=== PATIENT | male | born 1965 | race African-American/Black ===

== ENCOUNTER 2017-10-18 16:23 | Inpatient (IN) | payer BC ==
[~2017-10-18] VITALS: Ht 172.7 cm; Wt 100.7 kg
--- NOTE | ~2017-10-18 | HP ---
PATIENT: PENELOPE IRBY MEDICAL RECORD: [id number] ACCOUNT: [id number] LOCATION:[facility] D.2305 : [birth year] ADMISSION DATE: 10/18/17 HISTORY AND PHYSICAL EXAMINATION REASON FOR ADMISSION: Chest pain and shortness of breath. HISTORY OF PRESENT ILLNESS: The patient is a 52-year-old -Serbian male with previous history of essential hypertension and hypertensive renal disease necessitating a right renal transplant years ago. The patient states that he has been a little short of breath with activity for the last 3 weeks without cough or fever. 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 He was more short of breath as well. Pain did not go into his jaw. No nausea or vomiting. He came to Emergency Room for this reason and was evaluated with initial cardiac enzymes being negative and his D-dimer mildly elevated. His sats were unremarkable. EKG showed some early repole versus ST elevation in the lateral leads. He was given morphine with total relief and his pain has been fine since that time. He denies any recent exertional chest pain, just exertional dyspnea. He says he sees Dr. Amando Bernal every 3 months for hypertension followup. He is on lisinopril only for blood pressure. PAST MEDICAL HISTORY: Hypertensive renal disease with kidney transplant, essential hypertension, obesity, erectile dysfunction, chronic renal insufficiency, and remote history of CHF, resolved post-renal transplant. PAST SURGICAL HISTORY: He had right renal transplant, appendectomy, AV fistula of the left forearm for dialysis. ALLERGIES: None known. FAMILY HISTORY: Mom is living, has hypertension. Father of renal failure. SOCIAL HISTORY: He smoked for 20 years, quit 20 years ago, used to drink beer, none in many years. 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 He has a son graduated from [employer] this year. REVIEW OF SYSTEMS: GENERAL: He has been mildly fatigued, but no recent fever. HEENT: No recent visual change, sinus congestion, or sore throat. RESPIRATORY: Marked shortness of breath on exertion for the last 3 weeks. No cough. CARDIAC: Chest pain as mentioned above yesterday while at work, associated with shortness of breath. Denies any recent exertional pain. GASTROINTESTINAL: No nausea, vomiting, change in stools or blood per rectum. GENITOURINARY: Nocturia once nightly. ENDOCRINE: Denies polyuria, polydipsia, heat or cold intolerance. NEUROLOGIC: No history of stroke, TIA, or vascular headaches. INTEGUMENT: No rash or itching. PSYCHIATRIC: Denies depressed mood. PHYSICAL EXAMINATION: VITAL SIGNS: His temperature is 98.5 Fahrenheit orally, pulse 59 and regular, respirations are 20, blood pressure 124/63 with a sat of 97% on room air. GENERAL: Alert and oriented. HISTORY AND PHYSICAL [id number] PENELOPE IRBY HEENT: Eyes are clear. Oropharynx unremarkable. NECK: Supple, without bruits or masses. CHEST: No wheeze or rales. HEART: Regular rate without MGR. PMI appropriate. ABDOMEN: Soft, nontender, mildly obese with well-healed right lower quadrant surgical scar. GENITOURINARY: Deferred. EXTREMITIES: No CC&E. NEUROLOGICAL: Oriented to person, place, and time. Cranial nerves intact. Gait normal. Memory intact. LABORATORY DATA: Troponin 0.013. CPK is elevated to 73, MB is 2.0. D-dimer 0.80. EKG as mentioned above. Chest x-ray was clear. The patient had a V/Q scan performed last night, which was low probability. His white count is 8000, H&H of 11.3 and 36.8 with normal indices. Platelet count 156,000. Potassium is 5.1, CO2 is 23.8, BUN is 28, and creatinine is 2.3. I did not know his baseline. Liver functions are normal. Troponin already mentioned. Urinalysis is negative. ASSESSMENT: 1. Exertional dyspnea with chest pain suggesting angina. EKG with ST elevation in the lateral leads suggesting lateral ischemia. 2. Hypertension. 3. Renal vascular disease with chronic renal insufficiency. 4. Remote renal transplant. 5. Obesity. PLAN: The patient is currently in the ER admission, awaiting a bed. I will talk to Dr. Segura. We will have renal consult and check his creatinine prior to considering a diagnostic cardiac workup. We will order echo. Further workup pending clinical course. TRANSINT:[id number] Voice Confirmation ID: [id number] DOCUMENT ID: [id number] AISSATOU HUTTON MD at 0644 CC: [id number] DICTATION DATE: 10/19/17706 LOZENGE MAKER HELPER: 10/19/17 0948 ADM IN [facility] [address] [facility], [facility]
[~2017-10-18 16:23] MED LIST: ASPIRIN325 MG PO; BAYER CHEWABLE81 MG PO; CELLCEPT500 MG PO; PREDNISONE10 MG PO; PROGRAF5 MG PO; TIAZAC/CARDIZE180 MG PO; ZIAC 10-6.25 MG1 TAB PO; ZOCOR20 MG PO
[2017-10-18 17:02] LABS: BASOPHILS 0.2 % (0-2); EOSINOPHILS 1.2 % (0-7); HEMATOCRIT 36.6 % (42.0-54.0); HEMOGLOBIN 11.5 g/dL (13.5-17.5); IMMATURE GRANULOCYTES 2.9 % (0-5); LYMPHOCYTES 17.6 % (15-50); MCH 27.3 pg (26.0-34.0); MCHC 31.4 g/dL (31.0-37.0); MCV 86.9 fL (80.0-100.0); MEAN PLATELET VOLUME 9.4 fL (7.4-10.4); MONOCYTES 12.1 % (2-11); RBC 4.21 10x6/uL (4.20-6.10); RDW 12.7 % (11.5-14.5); WBC 9.7 10x3/uL (4.8-10.8)
[2017-10-18 17:19] LABS: PLATELET COUNT 158 10x3/uL (130-400)
[2017-10-18 17:31] LABS: ALBUMIN 3.6 g/dL (3.4-5.0); ANION GAP 13.7 mmol/L (8-16); BILIRUBIN - TOTAL 0.3 mg/dL (0.2-1.3); CALCIUM 9.5 mg/dL (8.5-10.1); CARBON DIOXIDE 23.1 mmol/L (21.0-32.0); CREATININE - SERUM 2.7 mg/dL (0.6-1.3); POTASSIUM - SERUM 4.8 mmol/L (3.5-5.1)
[2017-10-18 18:28] LABS: APPEARANCE CLEAR (CLEAR); BILIRUBIN NEGATIVE (NEGATIVE); COLOR YELLOW (YELLOW); GLUCOSE NEGATIVE (NEGATIVE); KETONE NEGATIVE (NEGATIVE); NITRITE NEGATIVE (NEGATIVE); PROTEIN NEGATIVE (NEGATIVE); SPECIFIC GRAVITY 1.015 (1.005-1.020); UROBILINOGEN NORMAL (NORMAL)
[2017-10-18 19:22] LABS: INR 0.95 (0.85-1.17); PROTIME 12.3 SECONDS (11.6-15.0)
[2017-10-18 19:24] LABS: APTT 26.9 SECONDS (22.8-39.4)
[2017-10-18 19:25] LABS: D-DIMER-QUANTITATIVE 0.8 ug/mLFEU (0.20-0.54)
[2017-10-18 19:47] LABS: CREATINE KINASE 273 UL (21-232)
[2017-10-18 19:50] LABS: TROPONIN-I < 0.017 ng/mL (0.000-0.060)
[2017-10-18 23:26] LABS: CKMB 1.6 U/L (0.0-3.6); CREATINE KINASE 245 UL (21-232)
[2017-10-18 23:29] LABS: TROPONIN-I < 0.017 ng/mL (0.000-0.060)
[2017-10-19 05:38] LABS: BASOPHILS 0.4 % (0-2); HEMATOCRIT 36.6 % (42.0-54.0); HEMOGLOBIN 11.3 g/dL (13.5-17.5); LYMPHOCYTES 22.4 % (15-50); MCHC 30.9 g/dL (31.0-37.0); MCV 87.4 fL (80.0-100.0); MEAN PLATELET VOLUME 10.2 fL (7.4-10.4); MONOCYTES 12.9 % (2-11); NEUTROPHILS 60.3 % (40-80); PLATELET COUNT 156 10x3/uL (130-400); RBC 4.19 10x6/uL (4.20-6.10); RDW 12.7 % (11.5-14.5); WBC 8.4 10x3/uL (4.8-10.8)
[2017-10-19 06:20] LABS: ALBUMIN 3.4 g/dL (3.4-5.0); ALKALINE PHOSPHATASE 57 U/L (46-116); CALC OSMOLALITY 286 mosm/kg (275-300); CALCIUM 9.3 mg/dL (8.5-10.1); CARBON DIOXIDE 23.8 mmol/L (21.0-32.0); CHLORIDE - SERUM 109 mmol/L (98-107); CKMB 1.4 U/L (0.0-3.6); CREATINE KINASE 203 UL (21-232); CREATININE - SERUM 2.3 mg/dL (0.6-1.3); GLUCOSE 94 mg/dL (74-106); POTASSIUM - SERUM 5.1 mmol/L (3.5-5.1); PROTEIN - SERUM 6.2 g/dL (6.4-8.2); SODIUM 141 mmol/L (136-145); TROPONIN-I < 0.017 ng/mL (0.000-0.060); UREA NITROGEN 28 mg/dL (7-18); eGFR NON AFRICAN AMERICAN 32 mL/min (90-120)
[2017-10-19 06:21] LABS: ALT (SGPT) 18 U/L (10-68)
[2017-10-19 08:19] LABS: AMYLASE - SERUM 120 U/L (25-115); LIPASE 153 U/L (73-393)
[2017-10-19 10:49] VITALS: BP 137/92; BMI 32.6
[2017-10-19 11:52] LABS: CKMB 1.1 U/L (0.0-3.6); CREATINE KINASE 204 UL (21-232)
[2017-10-19 11:55] LABS: TROPONIN-I < 0.017 ng/mL (0.000-0.060)
[2017-10-19 13:38] VITALS: Ht 172.7 cm; Wt 100.7 kg
[2017-10-19 19:00] VITALS: BP 119/63; BP 127/67
[2017-10-19 20:00] VITALS: BP 125/59
[2017-10-19 21:00] VITALS: BP 127/67
[2017-10-19 22:00] VITALS: BP 119/68
[2017-10-19 23:00] VITALS: BP 128/73
[2017-10-20] VITALS (43 sets, daily range): BP systolic 105–147; BP diastolic 67–95
[2017-10-20 04:26] LABS: ANION GAP 10.9 mmol/L (8-16); CALCIUM 8.5 mg/dL (8.5-10.1); CARBON DIOXIDE 23.1 mmol/L (21.0-32.0)
[2017-10-20 04:54] LABS: BASOPHILS 0.3 % (0-2); HEMATOCRIT 34.6 % (42.0-54.0); HEMOGLOBIN 10.8 g/dL (13.5-17.5); IMMATURE GRANULOCYTES 1.8 % (0-5); LYMPHOCYTES 14.8 % (15-50); MCH 26.9 pg (26.0-34.0); MCHC 31.2 g/dL (31.0-37.0); MCV 86.3 fL (80.0-100.0); MEAN PLATELET VOLUME 11.5 fL (7.4-10.4); MONOCYTES 12.2 % (2-11); NEUTROPHILS 69.9 % (40-80); RBC 4.01 10x6/uL (4.20-6.10); RDW 12.6 % (11.5-14.5); WBC 8.7 10x3/uL (4.8-10.8)
[2017-10-20 04:57] LABS: PLATELET COUNT 124 10x3/uL (130-400)
[2017-10-21] VITALS (8 sets, daily range): BP systolic 127–148; BP diastolic 67–85
[2017-10-21 04:31] LABS: BASOPHILS 0.2 % (0-2); EOSINOPHILS 1.3 % (0-7); HEMATOCRIT 32.6 % (42.0-54.0); HEMOGLOBIN 10.2 g/dL (13.5-17.5); IMMATURE GRANULOCYTES 1.1 % (0-5); LYMPHOCYTES 21.8 % (15-50); MCH 26.8 pg (26.0-34.0); MCHC 31.3 g/dL (31.0-37.0); MCV 85.8 fL (80.0-100.0); MEAN PLATELET VOLUME 9.8 fL (7.4-10.4); MONOCYTES 10.9 % (2-11); NEUTROPHILS 64.7 % (40-80); RDW 12.7 % (11.5-14.5); WBC 8.2 10x3/uL (4.8-10.8)
[2017-10-21 04:33] LABS: PLATELET COUNT 151 10x3/uL (130-400)
[2017-10-21 04:46] LABS: ANION GAP 18.5 mmol/L (8-16); CALCIUM 8.6 mg/dL (8.5-10.1); CARBON DIOXIDE 18.4 mmol/L (21.0-32.0); CREATININE - SERUM 2.5 mg/dL (0.6-1.3); POTASSIUM - SERUM 4.9 mmol/L (3.5-5.1)
[2017-10-22 04:00] VITALS: BP 148/77
[2017-10-22 06:56] LABS: BASOPHILS 0.2 % (0-2); EOSINOPHILS 1.1 % (0-7); HEMATOCRIT 32.9 % (42.0-54.0); HEMOGLOBIN 10.4 g/dL (13.5-17.5); IMMATURE GRANULOCYTES 0.5 % (0-5); LYMPHOCYTES 18.9 % (15-50); MCHC 31.6 g/dL (31.0-37.0); MCV 85.5 fL (80.0-100.0); MEAN PLATELET VOLUME 10.1 fL (7.4-10.4); NEUTROPHILS 70.3 % (40-80); PLATELET COUNT 158 10x3/uL (130-400); RBC 3.85 10x6/uL (4.20-6.10); RDW 12.5 % (11.5-14.5); WBC 9.2 10x3/uL (4.8-10.8)
[2017-10-22 07:14] LABS: ANION GAP 17.3 mmol/L (8-16); CALCIUM 8.8 mg/dL (8.5-10.1); CREATININE - SERUM 2.1 mg/dL (0.6-1.3); POTASSIUM - SERUM 5.3 mmol/L (3.5-5.1)
[2017-10-22 07:52] VITALS: BP 139/81
[2017-10-22 11:28] VITALS: BP 129/79
[2017-10-22 15:24] VITALS: BP 130/79
== END 2017-10-22 18:03 | disposition home or self-care (01) | DRG 311 ==
LOC: D.ER 16:23 → D.ICU 22:46 → D.M2 22:46 → D.EDHOLD 22:46 → D.ICU 10-19 16:38 → D.M2 10-22 00:22
PROVIDERS: Emergency Medicine; Family Medicine; Internal Medicine; Physician Assistant Medical
PROC: 4A02XM4 Measurement of Cardiac Total Activity, External Approach (ICD-10-PCS; principal; 2017-10-19)
PROC: 3E073KZ Introduction of Other Diagnostic Substance into Coronary Artery, Percutaneous Approach (ICD-10-PCS; 2017-10-19)
DX: I20.0 Unstable angina (principal); Z94.0 Kidney transplant status; T86.19 Other complication of kidney transplant; I12.9 Hypertensive chronic kidney disease with stage 1 through stage 4 chronic kidney disease, or unspecified chronic kidney disease; N18.3 Chronic kidney disease, stage 3 (moderate); R00.1 Bradycardia, unspecified; I95.9 Hypotension, unspecified; E66.9 Obesity, unspecified

== ENCOUNTER 2018-04-20 09:20 | Inpatient (IN) | payer BC ==
[~2018-04-20] VITALS: Ht 172.7 cm; Wt 92.9 kg
--- NOTE | ~2018-04-20 | MORECARE ---
CASE MANAGEMENT DISCHARGE SUMMARY PATIENT: PENELOPE IRBY UNIT: [id number] ADM DATE: 04/20/18 AGE: 52 : 65 SEX: M ROOM/BED: D.2112 AUTHOR: DEYA DE LA FUENTE PHYSICIAN: REFERRING PHYSICIAN: BETH NOEL MD DATE OF SERVICE: 04/25/18 Discharge Plan Patient Name: PENELOPE IRBY Facility: [facility]:[place] : 1965 Planned Disposition: Home Anticipated Discharge Date: 04/23/18 Discharge Date: 04/23/2018 Expected LOS: 3 Initial Reviewer: [email or web address] Initial Review Date: 04/25/2018 Generated: 04/25/18 9:45 am Patient Name: PENELOPE IRBY Page [phone] at 0845 All edits/amendments must be made on the electronic document DICTATION DATE: 04/25/1845 TOOL PLANER SET UP OPERATOR: KLEBER 04/25/18 RPT#: [id number] DC DATE:04/23/18 STATUS: DIS IN [facility] [address] [place] [address] END OF REPORT
[2018-04-20 10:50] LABS: BASOPHILS 0.1 % (0-2); EOSINOPHILS 0.7 % (0-7); HEMATOCRIT 35.9 % (42.0-54.0); HEMOGLOBIN 11.3 g/dL (13.5-17.5); IMMATURE GRANULOCYTES 1.3 % (0-5); LYMPHOCYTES 12.1 % (15-50); MCH 27.4 pg (26.0-34.0); MCHC 31.5 g/dL (31.0-37.0); MCV 87.1 fL (80.0-100.0); MEAN PLATELET VOLUME 9.9 fL (7.4-10.4); MONOCYTES 12.2 % (2-11); NEUTROPHILS 73.6 % (40-80); PLATELET COUNT 148 10x3/uL (130-400); RBC 4.12 10x6/uL (4.20-6.10); RDW 12.9 % (11.5-14.5)
[2018-04-20 10:58] LABS: APPEARANCE CLEAR (CLEAR); COLOR YELLOW (YELLOW)
[2018-04-20 11:00] LABS: AMYLASE - SERUM 137 U/L (25-115); LIPASE 179 U/L (73-393)
[2018-04-20 11:02] LABS: BILIRUBIN NEGATIVE (NEGATIVE); GLUCOSE NEGATIVE (NEGATIVE); KETONE NEGATIVE (NEGATIVE); NITRITE NEGATIVE (NEGATIVE); PROTEIN NEGATIVE (NEGATIVE); RED CELLS - URINE RARE /hpf (0-5); UROBILINOGEN NORMAL (NORMAL)
[2018-04-20 11:03] LABS: BACTERIA MODERATE /hpf (NONE SEEN); MUCUS <1+ /lpf (NONE SEEN)
[2018-04-20 11:34] VITALS: BP 164/83
[2018-04-20 12:39] LABS: ALBUMIN 3.4 g/dL (3.4-5.0); BILIRUBIN - TOTAL 0.58 mg/dL (0.2-1.3); CALCIUM 9.4 mg/dL (8.5-10.1); CARBON DIOXIDE 23.8 mmol/L (21.0-32.0); CREATININE - SERUM 2.4 mg/dL (0.6-1.3); POTASSIUM - SERUM 4.8 mmol/L (3.5-5.1); PROTEIN - SERUM 6.8 g/dL (6.4-8.2)
[2018-04-20 13:26] VITALS: BP 155/94
[2018-04-20 14:22] VITALS: BP 146/89
[2018-04-20 15:23] VITALS: BP 146/89; BMI 31.1
[2018-04-20 16:31] VITALS: BP 140/85
[2018-04-20 20:00] VITALS: BP 135/79
[2018-04-21] VITALS: BP 119/81
[2018-04-21 04:00] VITALS: BP 120/76
[2018-04-21 06:16] LABS: BASOPHILS 0.1 % (0-2); EOSINOPHILS 0.5 % (0-7); HEMATOCRIT 34.8 % (42.0-54.0); HEMOGLOBIN 10.9 g/dL (13.5-17.5); IMMATURE GRANULOCYTES 0.9 % (0-5); MCH 27.2 pg (26.0-34.0); MCHC 31.3 g/dL (31.0-37.0); MCV 86.8 fL (80.0-100.0); MEAN PLATELET VOLUME 10.2 fL (7.4-10.4); MONOCYTES 12.6 % (2-11); NEUTROPHILS 72.9 % (40-80); PLATELET COUNT 149 10x3/uL (130-400); RBC 4.01 10x6/uL (4.20-6.10); RDW 12.9 % (11.5-14.5)
[2018-04-21 06:47] LABS: ANION GAP 15.4 mmol/L (8-16); CALCIUM 8.4 mg/dL (8.5-10.1); CARBON DIOXIDE 20.2 mmol/L (21.0-32.0); CREATININE - SERUM 2.3 mg/dL (0.6-1.3); PHOSPHOROUS 2.2 mg/dL (2.5-4.9); POTASSIUM - SERUM 4.6 mmol/L (3.5-5.1)
[2018-04-21 08:06] VITALS: BP 144/78
[2018-04-21 10:35] VITALS: Ht 172.7 cm; Wt 92.9 kg
[2018-04-21 11:14] VITALS: BP 126/72
[2018-04-21 15:02] VITALS: BP 115/56
[2018-04-21 20:00] VITALS: BP 128/77
[2018-04-22] VITALS: BP 130/70
[2018-04-22 04:00] VITALS: BP 127/65
[2018-04-22 06:50] LABS: HEMATOCRIT 32.3 % (42.0-54.0); HEMOGLOBIN 10.4 g/dL (13.5-17.5); MCH 27.1 pg (26.0-34.0); MCHC 32.2 g/dL (31.0-37.0); MEAN PLATELET VOLUME 9.6 fL (7.4-10.4); NEUTROPHILS 78.7 % (40-80); PLATELET COUNT 122 10x3/uL (130-400); RBC 3.84 10x6/uL (4.20-6.10); RDW 12.2 % (11.5-14.5); WBC 12.4 10x3/uL (4.8-10.8)
[2018-04-22 06:52] LABS: MCV 84.1 fL (80.0-100.0)
[2018-04-22 07:00] LABS: ANION GAP 15.6 mmol/L (8-16); CALCIUM 8.6 mg/dL (8.5-10.1); CARBON DIOXIDE 20.9 mmol/L (21.0-32.0); CREATININE - SERUM 2.4 mg/dL (0.6-1.3); PHOSPHOROUS 2.7 mg/dL (2.5-4.9); POTASSIUM - SERUM 4.5 mmol/L (3.5-5.1)
[2018-04-22 08:20] VITALS: BP 131/69
[2018-04-22 12:07] VITALS: BP 137/93
[2018-04-22 14:14] VITALS: BP 102/54
[2018-04-22 20:00] VITALS: BP 112/59
[2018-04-23 00:10] VITALS: BP 118/59
[2018-04-23 04:00] VITALS: BP 121/51
[2018-04-23 05:47] LABS: BASOPHILS 0.1 % (0-2); EOSINOPHILS 0.9 % (0-7); HEMATOCRIT 31.8 % (42.0-54.0); HEMOGLOBIN 10.1 g/dL (13.5-17.5); IMMATURE GRANULOCYTES 1.2 % (0-5); MCH 26.9 pg (26.0-34.0); MCHC 31.8 g/dL (31.0-37.0); MCV 84.8 fL (80.0-100.0); MEAN PLATELET VOLUME 10.5 fL (7.4-10.4); MONOCYTES 8.9 % (2-11); NEUTROPHILS 75.9 % (40-80); PLATELET COUNT 137 10x3/uL (130-400); RBC 3.75 10x6/uL (4.20-6.10); RDW 12.5 % (11.5-14.5); WBC 12.9 10x3/uL (4.8-10.8)
[2018-04-23 06:05] LABS: ANION GAP 15.7 mmol/L (8-16); CALCIUM 8.9 mg/dL (8.5-10.1); CARBON DIOXIDE 20.9 mmol/L (21.0-32.0); CREATININE - SERUM 2.4 mg/dL (0.6-1.3); PHOSPHOROUS 3.1 mg/dL (2.5-4.9); POTASSIUM - SERUM 4.6 mmol/L (3.5-5.1)
[2018-04-23 07:40] VITALS: BP 135/73
[2018-04-23] MEDS ORDERED: FLAGYL500 MG PO (09:58)
[2018-04-23] MEDS ORDERED: LEVAQUIN250 MG PO (09:58)
[2018-04-23 10:40] VITALS: BP 134/76
== END 2018-04-23 15:47 | disposition home or self-care (01) | DRG 392 ==
LOC: D.ER 09:20 → D.M2 12:51 → D.EDHOLD 12:51 → D.M2 14:02
PROVIDERS: Emergency Medicine; Internal Medicine Nephrology
DX: K57.92 Diverticulitis of intestine, part unspecified, without perforation or abscess without bleeding (principal); I13.0 Hypertensive heart and chronic kidney disease with heart failure and stage 1 through stage 4 chronic kidney disease, or unspecified chronic kidney disease; Z94.0 Kidney transplant status; N18.3 Chronic kidney disease, stage 3 (moderate); I50.9 Heart failure, unspecified; D64.9 Anemia, unspecified; E78.5 Hyperlipidemia, unspecified; N26.9 Renal sclerosis, unspecified

== ENCOUNTER 2020-03-11 10:29 | Inpatient (IN) | payer BC ==
[~2020-03-11] VITALS: Ht 172.7 cm; Wt 110.6 kg
[2020-03-11] VITALS (10 sets, daily range): BP systolic 106–139; BP diastolic 65–96; BMI 30.2
[~2020-03-11 10:29] MED LIST changes: +FLAGYL500 MG PO; +LEVAQUIN250 MG PO
[2020-03-11 11:28] LABS: BASOPHILS 0.1 % (0-2); EOSINOPHILS 0.2 % (0-7); HEMOGLOBIN 12.3 g/dL (13.5-17.5); IMMATURE GRANULOCYTES 0.4 % (0-5); LYMPHOCYTES 6.3 % (15-50); MCH 26.9 pg (26.0-34.0); MCHC 31.5 g/dL (31.0-37.0); MCV 85.3 fL (80.0-100.0); MEAN PLATELET VOLUME 12.1 fL (7.4-10.4); MONOCYTES 5.3 % (2-11); NEUTROPHILS 87.7 % (40-80); RBC 4.57 10x6/uL (4.20-6.10); RDW 12.6 % (11.5-14.5); WBC 9.8 10x3/uL (4.8-10.8)
[2020-03-11 11:36] LABS: PLATELET COUNT 172 10x3/uL (130-400)
[2020-03-11 11:47] LABS: APTT 28.6 SECONDS (22.8-39.4); INR 0.94 (0.85-1.17); PROTIME 12.6 SECONDS (11.6-15.0)
[2020-03-11 12:43] LABS: ALBUMIN 3.3 g/dL (3.4-5.0); ALKALINE PHOSPHATASE 54 U/L (30-120); ALT (SGPT) 16 U/L (10-68); CALCIUM 8.8 mg/dL (8.5-10.1); CARBON DIOXIDE 16.5 mmol/L (21.0-32.0); CHLORIDE - SERUM 97 mmol/L (98-107); CKMB 1.1 U/L (0.0-3.6); CREATINE KINASE 345 UL (21-232); PRO BNP 464 pg/mL (0-125); PROTEIN - SERUM 6.8 g/dL (6.4-8.2); SODIUM 129 mmol/L (136-145); UREA NITROGEN 77 mg/dL (7-18); eGFR NON AFRICAN AMERICAN 10 mL/min (90-120)
[2020-03-11 12:45] LABS: CALC OSMOLALITY 289 mosm/kg (275-300); GLUCOSE 243 mg/dL (74-106)
[2020-03-11 12:46] LABS: POTASSIUM - SERUM 6.7 mmol/L (3.5-5.1); TROPONIN-I 0.063 ng/mL (0.000-0.060)
--- NOTE | 2020-03-11 12:46 | NUR ---
CRITIAL LAB CALLED BY JANET: K+ 6.7, TROP 0.063. NOTIFIED AMELIA CHUNG AT 1249. NO NEW ORDERS REC'D AT THIS TIME.
--- NOTE | 2020-03-11 15:15 | NUR ---
FSBS 332.
[2020-03-11 16:09] LABS: ALBUMIN 3.1 g/dL (3.4-5.0); ANION GAP 22.8 mmol/L (8-16); BILIRUBIN - TOTAL 0.64 mg/dL (0.2-1.3); CALCIUM 8.7 mg/dL (8.5-10.1); CREATININE - SERUM 6.5 mg/dL (0.6-1.3); PROTEIN - SERUM 7.4 g/dL (6.4-8.2)
[2020-03-11 16:10] LABS: POTASSIUM - SERUM 6.8 mmol/L (3.5-5.1)
[2020-03-11 20:51] LABS: ALBUMIN 2.9 g/dL (3.4-5.0); ANION GAP 24.4 mmol/L (8-16); BILIRUBIN - TOTAL 0.52 mg/dL (0.2-1.3); CALCIUM 8.6 mg/dL (8.5-10.1); CARBON DIOXIDE 14.4 mmol/L (21.0-32.0); CREATININE - SERUM 6.4 mg/dL (0.6-1.3); PROTEIN - SERUM 7.1 g/dL (6.4-8.2)
[2020-03-11 21:15] LABS: POTASSIUM - SERUM 6.8 mmol/L (3.5-5.1)
[2020-03-12] VITALS (24 sets, daily range): BP systolic 61–166; BP diastolic 36–97; Ht 172.7 cm; Wt 110.6 kg
[2020-03-12 01:44] LABS: CALCIUM 8.2 mg/dL (8.5-10.1); CREATININE - SERUM 5.8 mg/dL (0.6-1.3)
[2020-03-12 01:52] LABS: ANION GAP 17.6 mmol/L (8-16); CARBON DIOXIDE 20.7 mmol/L (21.0-32.0); POTASSIUM - SERUM 5.3 mmol/L (3.5-5.1)
[2020-03-12 04:52] LABS: BASOPHILS 0 % (0-2); EOSINOPHILS 0 % (0-7); HEMATOCRIT 32.8 % (42.0-54.0); HEMOGLOBIN 10.3 g/dL (13.5-17.5); IMMATURE GRANULOCYTES 0.7 % (0-5); LYMPHOCYTES 10.6 % (15-50); MCH 26.1 pg (26.0-34.0); MCHC 31.4 g/dL (31.0-37.0); MEAN PLATELET VOLUME 10.6 fL (7.4-10.4); MONOCYTES 8.1 % (2-11); NEUTROPHILS 80.6 % (40-80); PLATELET COUNT 163 10x3/uL (130-400); RBC 3.95 10x6/uL (4.20-6.10); RDW 12.4 % (11.5-14.5)
[2020-03-12 04:56] LABS: WBC 5.8 10x3/uL (4.8-10.8)
[2020-03-12 05:07] LABS: ALBUMIN 2.8 g/dL (3.4-5.0); ANION GAP 17.5 mmol/L (8-16); BILIRUBIN - TOTAL 0.41 mg/dL (0.2-1.3); CALCIUM 8.2 mg/dL (8.5-10.1); CARBON DIOXIDE 19.6 mmol/L (21.0-32.0); CREATININE - SERUM 5.8 mg/dL (0.6-1.3); POTASSIUM - SERUM 5.1 mmol/L (3.5-5.1); PROTEIN - SERUM 6.9 g/dL (6.4-8.2)
--- NOTE | 2020-03-12 09:43 | NUR ---
0700 REPOR RECIEVED AND CARE ASSUMED OF PATIENT.. SEE FLOW SHEET FOR SHIFTT ASSESMENT FINDINGS.. CARE GIVEN BY TEAM NURSING ESHA WALLACE RN AND MYSELF..
--- NOTE | 2020-03-12 10:24 | NUR ---
1020 ECHO IN PROGRESS
[2020-03-12 13:35] LABS: ANION GAP 19.6 mmol/L (8-16); CALCIUM 8.5 mg/dL (8.5-10.1); CARBON DIOXIDE 18.2 mmol/L (21.0-32.0); CREATININE - SERUM 5.6 mg/dL (0.6-1.3); POTASSIUM - SERUM 4.8 mmol/L (3.5-5.1)
--- NOTE | 2020-03-12 20:29 | NUR ---
DR HUTCHINSON PAGED. UPDATED ON STATUS, NEW ORDERS RECEIVED.
--- NOTE | 2020-03-12 21:00 | NUR ---
DR SMITHA LYNCH, UPDATED ON PT STATUS, NEW ORDERS RECEIVED.
[2020-03-12 21:52] LABS: ANION GAP 14.5 mmol/L (8-16); CALCIUM 8.6 mg/dL (8.5-10.1); CARBON DIOXIDE 22.4 mmol/L (21.0-32.0); CREATININE - SERUM 5.2 mg/dL (0.6-1.3); POTASSIUM - SERUM 4.9 mmol/L (3.5-5.1)
[2020-03-13] VITALS (24 sets, daily range): BP systolic 118–140; BP diastolic 52–98
[2020-03-13 05:06] LABS: C-REACTIVE PROTEIN 7.9 mg/dL (0.0-0.9); MAGNESIUM - SERUM 1.8 mg/dL (1.8-2.4); PHOSPHOROUS 3.4 mg/dL (2.5-4.9)
[2020-03-13 12:10] LABS: ALBUMIN 2.9 g/dL (3.4-5.0); ANION GAP 18.3 mmol/L (8-16); BILIRUBIN - TOTAL 0.4 mg/dL (0.2-1.3); CALCIUM 8.5 mg/dL (8.5-10.1); CARBON DIOXIDE 20.7 mmol/L (21.0-32.0); CREATININE - SERUM 4.8 mg/dL (0.6-1.3); PROTEIN - SERUM 6.1 g/dL (6.4-8.2)
--- NOTE | 2020-03-13 13:25 | NUR ---
Nutrition follow-up: Diet: Renal ADA PO Intake 100% of dinner last night Pt with BIPAP in place at breakfast this morning Labs reviewed; K elevated Wt: 199# RDN following.
[2020-03-13 18:12] LABS: ANION GAP 15.9 mmol/L (8-16); CARBON DIOXIDE 21.5 mmol/L (21.0-32.0); CREATININE - SERUM 3.8 mg/dL (0.6-1.3); POTASSIUM - SERUM 5.4 mmol/L (3.5-5.1)
--- NOTE | 2020-03-13 19:00 | NUR ---
REPORT RECEIVED. PT SITTING IN BED, BIPAP IN PLACE. PT TACHYPNEIC, WILL CONTINUE TO MONITOR. ASSESSMENT COMPLETED, SEE FLOWSHEET. RT IJ CVL INFUSING, SEE IV FLOWSHEET.
[2020-03-14] VITALS (13 sets, daily range): BP systolic 129–158; BP diastolic 87–100
[2020-03-14 06:37] LABS: ANION GAP 16.7 mmol/L (8-16); CALCIUM 9.3 mg/dL (8.5-10.1); CARBON DIOXIDE 22.6 mmol/L (21.0-32.0); CREATININE - SERUM 3.3 mg/dL (0.6-1.3); MAGNESIUM - SERUM 1.9 mg/dL (1.8-2.4); PHOSPHOROUS 4.1 mg/dL (2.5-4.9); POTASSIUM - SERUM 5.3 mmol/L (3.5-5.1)
[2020-03-14 07:02] LABS: BASOPHILS 0 % (0-2); EOSINOPHILS 0 % (0-7); HEMATOCRIT 31.5 % (42.0-54.0); HEMOGLOBIN 9.9 g/dL (13.5-17.5); IMMATURE GRANULOCYTES 0.9 % (0-5); LYMPHOCYTES 4.1 % (15-50); MCH 26.4 pg (26.0-34.0); MCHC 31.4 g/dL (31.0-37.0); MEAN PLATELET VOLUME 10.9 fL (7.4-10.4); MONOCYTES 11.2 % (2-11); NEUTROPHILS 83.8 % (40-80); PLATELET COUNT 186 10x3/uL (130-400); RBC 3.75 10x6/uL (4.20-6.10); RDW 12.6 % (11.5-14.5); WBC 8.5 10x3/uL (4.8-10.8)
--- NOTE | 2020-03-14 11:23 | NUR ---
PLACED PT ON NBR
[2020-03-15] VITALS (18 sets, daily range): BP systolic 109–167; BP diastolic 85–111
[2020-03-15 06:43] LABS: BASOPHILS 0.1 % (0-2); EOSINOPHILS 0 % (0-7); HEMATOCRIT 32.6 % (42.0-54.0); LYMPHOCYTES 8.1 % (15-50); MCH 26.2 pg (26.0-34.0); MCHC 30.7 g/dL (31.0-37.0); MCV 85.3 fL (80.0-100.0); MEAN PLATELET VOLUME 10.8 fL (7.4-10.4); MONOCYTES 5.1 % (2-11); NEUTROPHILS 84.7 % (40-80); PLATELET COUNT 208 10x3/uL (130-400); RBC 3.82 10x6/uL (4.20-6.10); RDW 12.8 % (11.5-14.5); WBC 9.9 10x3/uL (4.8-10.8)
[2020-03-15 06:55] LABS: ANION GAP 13.3 mmol/L (8-16); CALCIUM 9.3 mg/dL (8.5-10.1); CARBON DIOXIDE 25.5 mmol/L (21.0-32.0); CREATININE - SERUM 2.7 mg/dL (0.6-1.3); MAGNESIUM - SERUM 1.6 mg/dL (1.8-2.4); PHOSPHOROUS 3.8 mg/dL (2.5-4.9); POTASSIUM - SERUM 4.8 mmol/L (3.5-5.1)
--- NOTE | 2020-03-15 08:25 | NUR ---
DECREASED O2 70%
--- NOTE | 2020-03-15 13:18 | NUR ---
Nutrition follow-up: Pt receiving a renal ADA diet; po intake poor due to BIPAP on most of the time Labs reviewed Wt: 239# Will need nutrition support started within 24 hours if po intake remains poor. RDN following.
[2020-03-16] VITALS (24 sets, daily range): BP systolic 90–197; BP diastolic 62–117
--- NOTE | 2020-03-16 00:53 | NUR ---
CHANGED CVL DRESSING AT 2200, OLD DRESSING COMING OFF. CHG WITH COMPLETE LINEN CHANGE AT 0000, SOILED SOILED/BM
--- NOTE | 2020-03-16 01:32 | NUR ---
PATIENT BROKE BIPAP. WALKING OUT OF ROOM, CONFUSED. ASSISTED BACK TO ROOM AND REPLACED BIPAP.
[2020-03-16 04:52] LABS: BASOPHILS 0.2 % (0-2); EOSINOPHILS 0 % (0-7); HEMATOCRIT 33.7 % (42.0-54.0); HEMOGLOBIN 10.6 g/dL (13.5-17.5); IMMATURE GRANULOCYTES 4.1 % (0-5); LYMPHOCYTES 8.2 % (15-50); MCH 26.6 pg (26.0-34.0); MCHC 31.5 g/dL (31.0-37.0); MCV 84.5 fL (80.0-100.0); MEAN PLATELET VOLUME 10.1 fL (7.4-10.4); MONOCYTES 5.3 % (2-11); NEUTROPHILS 82.2 % (40-80); PLATELET COUNT 233 10x3/uL (130-400); RBC 3.99 10x6/uL (4.20-6.10); RDW 12.7 % (11.5-14.5)
[2020-03-16 04:53] LABS: WBC 15.9 10x3/uL (4.8-10.8)
[2020-03-16 05:04] LABS: ANION GAP 14.4 mmol/L (8-16); CALCIUM 9.7 mg/dL (8.5-10.1); CARBON DIOXIDE 24.1 mmol/L (21.0-32.0); CREATININE - SERUM 2.5 mg/dL (0.6-1.3); PHOSPHOROUS 3.3 mg/dL (2.5-4.9); POTASSIUM - SERUM 4.5 mmol/L (3.5-5.1)
[2020-03-16 05:06] LABS: MAGNESIUM - SERUM 2.3 mg/dL (1.8-2.4)
--- NOTE | 2020-03-16 06:13 | NUR ---
PATIENT WALKING AROUND ROOM. STUMBLING. ASSISTED TO BED. F/C PLACE D/T NO UOP DURING TRAIN MASTER WITH APPROX 150 ML OUT. EDUCATED ON FALL RISK AGAIN.
--- NOTE | 2020-03-16 10:52 | NUR ---
PT SHAKING AND COMMING OUT OF BED AND APPEARS ANXIOUS. REPORTED TO DR BONE. ATIVAN IV GIVEN.
--- NOTE | 2020-03-16 18:54 | NUR ---
RESP RATE 50BPM ON BIPAP. CALLED AND REPORTED TO DR BONE. PT INTUBATED BY DR NELSON 8.5ETT. 23 LIP LINE. PTS CALLED. LEFT MESSAGE.
--- NOTE | 2020-03-16 19:00 | NUR ---
PAGED DR. BONE
--- NOTE | 2020-03-16 19:47 | NUR ---
1930-PATIENT SBP IN 70. OK WITH DR. BONE TO GIVE 500 ML BOLUS AND MAY GIVE ANOTHER IF BP NOT IMPROVING.
--- NOTE | 2020-03-16 20:35 | NUR ---
GIVING SECOND 500 ML BOLUS OF IVF PER DR. BONE. BP 74/45 (51)
--- NOTE | 2020-03-16 20:41 | NUR ---
CHAO IRBY CALLED, GAVE PASSCODE, UPDATE GIVEN
--- NOTE | 2020-03-16 21:15 | NUR ---
A-LINE ISN'T WORKING, USING CUFF PRESSURE.
[2020-03-17] VITALS (24 sets, daily range): BP systolic 79–132; BP diastolic 38–79
--- NOTE | 2020-03-17 03:27 | NUR ---
CALLED, PASSCODE GIVEN. UPDATE GIVEN TO
[2020-03-17 04:34] LABS: BASOPHILS 0.2 % (0-2); EOSINOPHILS 0 % (0-7); HEMATOCRIT 27.1 % (42.0-54.0); IMMATURE GRANULOCYTES 5.7 % (0-5); LYMPHOCYTES 6.9 % (15-50); MEAN PLATELET VOLUME 9.4 fL (7.4-10.4); MONOCYTES 6.3 % (2-11); NEUTROPHILS 80.9 % (40-80); PLATELET COUNT 199 10x3/uL (130-400); RDW 12.9 % (11.5-14.5)
[2020-03-17 04:35] LABS: HEMOGLOBIN 8.4 g/dL (13.5-17.5); MCV 87.1 fL (80.0-100.0); RBC 3.11 10x6/uL (4.20-6.10); WBC 10.5 10x3/uL (4.8-10.8)
[2020-03-17 04:58] LABS: ALBUMIN 2.3 g/dL (3.4-5.0); ANION GAP 14.1 mmol/L (8-16); BILIRUBIN - TOTAL 0.4 mg/dL (0.2-1.3); CALCIUM 8.8 mg/dL (8.5-10.1); CARBON DIOXIDE 24.9 mmol/L (21.0-32.0); MAGNESIUM - SERUM 2.1 mg/dL (1.8-2.4); PROTEIN - SERUM 5.6 g/dL (6.4-8.2); VANCOMYCIN - RANDOM 11.4 ug/mL (10.0-20.0)
[2020-03-17 05:00] LABS: CREATININE - SERUM 3.2 mg/dL (0.6-1.3); PHOSPHOROUS 4.3 mg/dL (2.5-4.9)
[2020-03-18] VITALS (25 sets, daily range): BP systolic 87–132; BP diastolic 0–78
--- NOTE | 2020-03-18 | NUR ---
Spoke with Dr. Espinal regarding Pt's O2 sats continueing to drop despite checking cuff pressure, checking tube placement, increasing fiO2% to 100%, and suctioning. Dr Espinal gave orders to do the Recruitment manuver- PEEP of 30 for 30 secs, wait for 15 mins and then to repeat. No vent changes to be made at this time. Gave orders to RT, and they were completed.
[2020-03-18 06:53] LABS: ANION GAP 16.4 mmol/L (8-16); CALCIUM 7.5 mg/dL (8.5-10.1); CARBON DIOXIDE 19.4 mmol/L (21.0-32.0); CREATININE - SERUM 2.7 mg/dL (0.6-1.3); MAGNESIUM - SERUM 2.1 mg/dL (1.8-2.4); POTASSIUM - SERUM 4.8 mmol/L (3.5-5.1); VANCOMYCIN - RANDOM 13.8 ug/mL (10.0-20.0)
[2020-03-18 06:54] LABS: PHOSPHOROUS 5.5 mg/dL (2.5-4.9)
[2020-03-18 07:00] LABS: BASOPHILS 0.5 % (0-2); EOSINOPHILS 0.2 % (0-7); HEMATOCRIT 24.6 % (42.0-54.0); IMMATURE GRANULOCYTES 11.3 % (0-5); LYMPHOCYTES 4.4 % (15-50); MCHC 30.5 g/dL (31.0-37.0); MCV 88.5 fL (80.0-100.0); MONOCYTES 8.8 % (2-11); NEUTROPHILS 74.8 % (40-80); PLATELET COUNT 220 10x3/uL (130-400); RBC 2.78 10x6/uL (4.20-6.10); RDW 12.8 % (11.5-14.5); WBC 9.8 10x3/uL (4.8-10.8)
[2020-03-18 07:04] LABS: HEMOGLOBIN 7.5 g/dL (13.5-17.5)
--- NOTE | 2020-03-18 07:10 | NUR ---
REPORT RECEIVED FROM OFF GOING NURSE AND PATIENT CARE ASSUMED. PATIENT LAYING IN BED ON BACK SEDATED WITH VENT IN PLACE AC 20 [id number] TV 470 PEEP14. BP 136/72 HR 50 O2SAT 95% T 99.4. SHARMA CATHETER IN PLACE AND DRAINING CLEAR YELLOW URINE. IV RIJ INFUSING DIDPROVAN, FENTANYL AND NS. WILL CONTINUEWITH PLAN OF CARE. SR UP X 2 BED IN LOW POSITON AND CALL LIGHT IN PLACE.
--- NOTE | 2020-03-18 13:38 | NUR ---
Nutrition follow-up: Pt intubated, sedated with propofol @ 32.4 ml/hr Nepro starting @ 10 ml/hr with 10 ml increase q 12 hours to goal rate of 40 ml/hr. Labs reviewed Wt: 198# Renal function slowing improving RDN following.
[2020-03-19] VITALS (43 sets, daily range): BP systolic 84–208; BP diastolic 20–79
--- NOTE | 2020-03-19 | NUR ---
Spoke with Dr. Espinal regarding Pt's O2 sats continuing to drop despite all efforts by this nurse and RT to correct. At the time of call O2 sats were 82%. Orders received to perform the recruitment manuver- PEEP of 30 for 30 secs and then repeat after 15 mins. Orders given to RT to perform.
--- NOTE | 2020-03-19 00:05 | NUR ---
PERFORMED RECRUITMENT MANUEVER PEEP OF 10YZG09 PER [address] ORDER SP02 80% PRIOR TO MANUEVER AND 88 POST PT TOLERATED WITHOUT IMMEDIATE S/S DISTRESS NURSE NOTIFIED
--- NOTE | 2020-03-19 00:20 | NUR ---
PERFORMED RECRUITMENT MANUEVER X 2 30 CMH20 PEEP X 30 SEC ANJU WELL POST SPO2 86 NURSE NOTIFIED
--- NOTE | 2020-03-19 00:30 | NUR ---
Spoke with Dr. Espinal again regarding Pt's O2 sats continuing to drop despite all efforts of RT and myself. At the time of call O2 sats were 74%. Orders received.
--- NOTE | 2020-03-19 00:43 | NUR ---
INCREASED PEEP TO 27GSZ09 PER DR SIMMONS ORDER VALARIE CARREON NOTIFIED TOLERATED WELL
[2020-03-19 06:07] LABS: ANION GAP 15.2 mmol/L (8-16); BILIRUBIN - TOTAL 0.34 mg/dL (0.2-1.3); C-REACTIVE PROTEIN 7.2 mg/dL (0.0-0.9); CALCIUM 8.7 mg/dL (8.5-10.1); CARBON DIOXIDE 21.7 mmol/L (21.0-32.0); CREATININE - SERUM 2.6 mg/dL (0.6-1.3); POTASSIUM - SERUM 4.9 mmol/L (3.5-5.1); PROTEIN - SERUM 5.8 g/dL (6.4-8.2); VANCOMYCIN - RANDOM 21.6 ug/mL (10.0-20.0)
[2020-03-19 06:26] LABS: HEMATOCRIT 28.9 % (42.0-54.0); HEMOGLOBIN 8.8 g/dL (13.5-17.5); MCH 27.1 pg (26.0-34.0); MCHC 30.4 g/dL (31.0-37.0); MCV 88.9 fL (80.0-100.0); MEAN PLATELET VOLUME 9.9 fL (7.4-10.4); PLATELET COUNT 276 10x3/uL (130-400); RBC 3.25 10x6/uL (4.20-6.10); RDW 13.1 % (11.5-14.5); WBC 21.1 10x3/uL (4.8-10.8)
--- NOTE | 2020-03-19 07:10 | NUR ---
REPORT RECEIVED FROM OFF GOING NURSE AND PATIENT CARE ASSUMED. PATIENT LAYING IN BED ON BED WITH HOB ELEVATED 30 DEGREES WITH EYES CLOSED ON VENT . JC EYES EDEMATOUS. IV TO RT JUGULAR INFUSING FENTANYL, DIPROVAN AND LR. BP81/45 HR59 R19 T98.1 O2 SAT 72% VENT SETTING AC 20 FIO2 100% TV 500 PEEP 16. PER OFF GOING NURSE, FAMILY NOTIFIED AND ON WAY TO HOSPITAL. FAMILY STILL WISHES FULL CODE. WILL CONTINUE TO MONITOR.
[2020-03-19 08:21] LABS: LYMPHOCYTES 6 % (15-50); MONOCYTES 2 % (2-11); NEUTROPHILS 77 % (40-80); PLATELET ESTIMATE NORMAL
--- NOTE | 2020-03-19 09:45 | NUR ---
DR SIMMONS VISITING WITH PATIENT ON UNIT IN PERSON .
--- NOTE | 2020-03-19 10:00 | NUR ---
MULTIPLE FAMILY MEMBERS AND KITCHEN MANAGER OUTSIDE OF ROOM. ONLY 2 TWO ALLOWED AT A TIME WITH PROPER COVID MEASURES TAKEN.
--- NOTE | 2020-03-19 23:09 | MORECARE ---
CASE MANAGEMENT DISCHARGE SUMMARY PATIENT: PENELOPE IRBY UNIT: [id number] ADM DATE: 03/11/20 AGE: 54 : 65 SEX: M ROOM/BED: D.2316 AUTHOR: DEYA DE LA FUENTE PHYSICIAN: REFERRING PHYSICIAN: JEAN MARIE CHRISTENSEN MD DATE OF SERVICE: 03/19/20 Discharge Plan Patient Name: PENELOPE IRBY Facility: [facility]:[place] : 1965 Planned Disposition: Home Anticipated Discharge Date: Discharge Date: Expected LOS: Initial Reviewer: [email or web address] Initial Review Date: 03/11/2020 Generated: 03/20/20 12:08 am Patient Name: PENELOPE IRBY Page 69339 at 2305 All edits/amendments must be made on the electronic document DICTATION DATE: 03/19/202308 MANAGER MBA: KLEBER 03/19/202308 RPT#: [id number] DC DATE: STATUS: ADM IN [facility] [address] [place] [address] END OF REPORT
[2020-03-20] VITALS (86 sets, daily range): BP systolic 67–134; BP diastolic 38–66
[2020-03-20 05:32] LABS: BASOPHILS 0.6 % (0-2); EOSINOPHILS 0.4 % (0-7); HEMOGLOBIN 10.8 g/dL (13.5-17.5); IMMATURE GRANULOCYTES 10.5 % (0-5); LYMPHOCYTES 3.5 % (15-50); MCH 28.7 pg (26.0-34.0); MCHC 31.8 g/dL (31.0-37.0); MCV 90.4 fL (80.0-100.0); MEAN PLATELET VOLUME 10.7 fL (7.4-10.4); PLATELET COUNT 350 10x3/uL (130-400); RBC 3.76 10x6/uL (4.20-6.10); RDW 13.5 % (11.5-14.5); WBC 34.7 10x3/uL (4.8-10.8)
[2020-03-20 05:36] LABS: INR 1.28 (0.85-1.17); PROTIME 15.9 SECONDS (11.6-15.0)
[2020-03-20 06:55] LABS: ALBUMIN 1.9 g/dL (3.4-5.0); ANION GAP 24.7 mmol/L (8-16); BILIRUBIN - TOTAL 0.26 mg/dL (0.2-1.3); CALCIUM 7.1 mg/dL (8.5-10.1); CARBON DIOXIDE 17.8 mmol/L (21.0-32.0); CREATININE - SERUM 4.6 mg/dL (0.6-1.3); POTASSIUM - SERUM 5.5 mmol/L (3.5-5.1); PROTEIN - SERUM 4.4 g/dL (6.4-8.2)
[2020-03-20 07:34] LABS: C-REACTIVE PROTEIN 31.6 mg/dL (0.0-0.9)
[2020-03-20 07:42] LABS: VANCOMYCIN - RANDOM 16.4 ug/mL (10.0-20.0)
--- NOTE | 2020-03-20 13:53 | NUR ---
Nutrition follow-up: Intubated, sedated NPO now with pressors in use; ZABRINA noted Labs reviewed Wt: 219# RDN following.
[2020-03-21] VITALS (92 sets, daily range): BP systolic 82–188; BP diastolic 42–86
[2020-03-21 04:34] LABS: HEMATOCRIT 28.8 % (42.0-54.0); HEMOGLOBIN 8.9 g/dL (13.5-17.5); MCH 27.4 pg (26.0-34.0); MCHC 30.9 g/dL (31.0-37.0); MCV 88.6 fL (80.0-100.0); PLATELET COUNT 282 10x3/uL (130-400); RBC 3.25 10x6/uL (4.20-6.10); RDW 13.8 % (11.5-14.5); WBC 28.3 10x3/uL (4.8-10.8)
[2020-03-21 05:05] LABS: EOSINOPHILS 1 % (0-7); LYMPHOCYTES 4 % (15-50); MONOCYTES 2 % (2-11); NEUTROPHILS 91 % (40-80); PLATELET ESTIMATE NORMAL
[2020-03-21 05:57] LABS: ANION GAP 21.1 mmol/L (8-16); CARBON DIOXIDE 18.7 mmol/L (21.0-32.0)
[2020-03-21 05:58] LABS: ALBUMIN 1.6 g/dL (3.4-5.0); BILIRUBIN - TOTAL 0.38 mg/dL (0.2-1.3); C-REACTIVE PROTEIN 1.2 mg/dL (0.0-0.9); PROTEIN - SERUM 4.3 g/dL (6.4-8.2); VANCOMYCIN - RANDOM 29.6 ug/mL (10.0-20.0)
[2020-03-21 05:59] LABS: CALCIUM 6.4 mg/dL (8.5-10.1); POTASSIUM - SERUM 6.8 mmol/L (3.5-5.1)
[2020-03-22] VITALS (38 sets, daily range): BP systolic 95–177; BP diastolic 46–114
[2020-03-22 09:03] LABS: ANION GAP 17.4 mmol/L (8-16); CALCIUM 7.3 mg/dL (8.5-10.1); CARBON DIOXIDE 21.9 mmol/L (21.0-32.0); CREATININE - SERUM 5.6 mg/dL (0.6-1.3)
[2020-03-22 09:07] LABS: POTASSIUM - SERUM 5.3 mmol/L (3.5-5.1)
[2020-03-22 09:11] LABS: BASOPHILS 0.2 % (0-2); EOSINOPHILS 0.4 % (0-7); HEMATOCRIT 23.6 % (42.0-54.0); IMMATURE GRANULOCYTES 2.5 % (0-5); LYMPHOCYTES 2.5 % (15-50); MCH 26.9 pg (26.0-34.0); MCHC 30.9 g/dL (31.0-37.0); MCV 87.1 fL (80.0-100.0); MEAN PLATELET VOLUME 10.4 fL (7.4-10.4); MONOCYTES 6.3 % (2-11); NEUTROPHILS 88.1 % (40-80); PLATELET COUNT 233 10x3/uL (130-400); RBC 2.71 10x6/uL (4.20-6.10); WBC 24.6 10x3/uL (4.8-10.8)
[2020-03-22 09:12] LABS: HEMOGLOBIN 7.3 g/dL (13.5-17.5)
--- NOTE | 2020-03-22 09:45 | NUR ---
DR SIMMONS IN THE PTS ROOM BRONCHING THE PATIENT. DR SIMMONS PLEASED WITH THE ETT PLACEMENT. AFTER PROCEDURE, PTS HEART RATE 190. ORDERS FOR IV LOPRESSOR. PT HEART RATE DECREASEDT TO 130 BEFORE MEDICATION ADDMINISTERED. HEART RATE STILL 130 AFIB. OK TO GIVE LOPRESSOR PER DR SIMMONS.
--- NOTE | 2020-03-22 10:03 | NUR ---
REPORTED CRITICAL HGB AND HCT. ORDERS 1 UNIT PRBC NOW.
--- NOTE | 2020-03-22 10:22 | NUR ---
Nutrition follow-up: Pt intubated, sedated OGT; per Dr. Espinal TF of Nepro to begin today s/p bronch today Labs reviewed Wt: 228# Recommend Nepro @ goal rate of 50 ml/hr via gravity drip of 12 drops/minute (3 drops/15 seconds) RDN following.
--- NOTE | 2020-03-22 11:50 | NUR ---
CHAO IRBY CALLED AND STATED SHE WANTED TO SPEAK WITH DR SIMMONS. DR SIMMONS PAGED AND GAVE HIM CHAO PHONE NUMBER AND A MESSEAGE TO CALL HER.
--- NOTE | 2020-03-22 14:28 | NUR ---
HAVING PROBLEMS PASSING SUCTION CATH DOWN ETT. DR SIMMONS CAME IN AND REPOSITIONED ETT AND PERFORMED BRONCHOSCOPE. ETT NOW AT 28@LIP
--- NOTE | 2020-03-22 16:33 | NUR ---
DIALYSIS BEING STARTED AT THIS TIME.
--- NOTE | 2020-03-22 17:01 | NUR ---
1ST UNIT OF BLOOD STARTED WITH DIALYSIS.
--- NOTE | 2020-03-22 17:45 | NUR ---
2ND UNIT OF PRBC INITIATED.
--- NOTE | 2020-03-22 19:34 | MORECARE ---
CASE MANAGEMENT DISCHARGE SUMMARY PATIENT: PENELOPE IRBY UNIT: [id number] ADM DATE: 03/11/20 AGE: 54 : 65 SEX: M ROOM/BED: D.2316 AUTHOR: DEYA DE LA FUENTE PHYSICIAN: REFERRING PHYSICIAN: JEAN MARIE CHRISTENSEN MD DATE OF SERVICE: 03/22/20 Discharge Plan Patient Name: PENELOPE IRBY Facility: [facility]:[place] : 1965 Planned Disposition: Home Anticipated Discharge Date: Discharge Date: Expected LOS: Initial Reviewer: [email or web address] Initial Review Date: 03/11/2020 Generated: 03/22/20 8:34 pm Last DP export: 03/19/20 10:09 p Patient Name: PENELOPE IRBY Page [phone] at 1934 All edits/amendments must be made on the electronic document DICTATION DATE: 03/22/201933 INDUSTRIAL ENGINEERING TECHNOLOGIST: KLEBER 03/22/201933 RPT#: [id number] DC DATE: STATUS: ADM IN [facility] [address] [place] [address] END OF REPORT
--- NOTE | 2020-03-22 19:54 | MORECARE ---
CASE MANAGEMENT DISCHARGE SUMMARY PATIENT: PENELOPE IRBY UNIT: [id number] ADM DATE: 03/11/20 AGE: 54 : 65 SEX: M ROOM/BED: D.2316 AUTHOR: DEYA DE LA FUENTE PHYSICIAN: REFERRING PHYSICIAN: JEAN MARIE CHRISTENSEN MD DATE OF SERVICE: 03/22/20 Discharge Plan Patient Name: PENELOPE IRBY Facility: [facility]:[place] : 1965 Planned Disposition: Home Anticipated Discharge Date: Discharge Date: Expected LOS: Initial Reviewer: [email or web address] Initial Review Date: 03/11/2020 Generated: 03/22/20 8:53 pm Comments DCP- Discharge Planning Updated by [email or web address]: Kecia Avitia on 03/22/20 6:[address] LATE ENTRY 03/20/20 Patient Name: PENELOPE IRBY Admission Status: ER Accout number: [id number] Admission Date: 03-11-2020 : 1965 Admission Diagnosis:OTHER SPECIFIED SEPSIS Attending: JEAN MARIE CHRISTENSEN Current LOS: 11 Anticipated DC Date: Planned Disposition: Home Primary Insurance: [employer] OUT OF STATE Discharge Planning Comments: CM met with patient to complete initial dc planning assessment. CM educated patient on the CM role and verbal consent given by patient to complete assessment. Patient lives at home with family. Patient is independent. At discharge patient plans to return home and feels this is a safe discharge. CM discussed availability of home health, rehab services, and medical equipment. Patient will have family to transport home. Patient denied known discharge needs at this time. CM will continue to follow and will assist as needed with dc plans/needs. Creative Intern: Kecia Avitia DCPIA - Discharge Planning Initial Assessment Updated by [email or web address]: Kecia Avitia on 03/22/20 7:48 pm * Is the patient Alert and Oriented? No * PCP NO PCP - FOLLOWED BY BAALJIK NEPH * [facility] * Preadmission Environment Home with Family * ADLs Independent * List name and contact numbers for known caregivers / representatives who currently or will assist patient after discharge: CHAO MAHAMED - [phone] ZHANG BRIONES - [phone] * Verbal permission to speak to the caregivers and representatives has been obtained from the patient. N/A * Community resources currently utilized None * Additional services required to return to the preadmission environment? No * Can the patient safely return to the preadmission environment? Yes * Has this patient been hospitalized within the prior 30 days at any hospital? No Last DP export: 03/22/20 6:34 p Patient Name: PENELOPE IRBY Page 62752 at 1954 All edits/amendments must be made on the electronic document DICTATION DATE: 03/22/201952 DEMONSTRATOR SEWING TECHNIQUES: KLEBER 03/22/201952 RPT#: [id number] DC DATE: STATUS: ADM IN [facility] [address] [place] [address] END OF REPORT
--- NOTE | 2020-03-22 21:44 | NUR ---
PTS CHAO CALLED AFTER GIVING NURSE PASSCODE UPDATED AND QUESTIONS ANSWERED
--- NOTE | 2020-03-22 22:40 | NUR ---
PT ADMITTED FROM FLOOR TO ICU ROOM 13. PLACED ON CM MONITOR ORIENTED TO UNIT SEE FLOWSHEETS AND ASSESSMENTS FOR FULL ASSESSMENT
[2020-03-23] VITALS (18 sets, daily range): BP systolic 34–209; BP diastolic 22–99
--- NOTE | 2020-03-23 03:30 | NUR ---
PT ASYSTOLE CODE CALLED CPR STARTED
--- NOTE | 2020-03-23 03:34 | NUR ---
PULSE BACK HYPOTENSIVE CODE COMPLETE WITH RETURN OF PULSE PRESSORS ARE MAXED Y
--- NOTE | 2020-03-23 03:40 | NUR ---
CALLED PTS INFORMED OF PT CODING SHE WANTS EVERYTHING TO BE DONE. INFORMED WE WERE DOING CHEST COMPRESSIONS AND MEDS. SHE IS GOING TO GET SOMEONE TO DRIVE HER HERE. PTS IS AWARE OF PTS CRITICAL STATUS AND OF ALREADY ON VENT WITH O2 AT 100%
--- NOTE | 2020-03-23 05:33 | NUR ---
SPOKE WITH PTS AND SON INFORMED OF PT STATUS THAT HE WAS MAXED OUT ON PRESSORS AND PACING INTERMITTENTLY
--- NOTE | 2020-03-23 05:55 | NUR ---
CODE CALLED BY NINFA HE ALSO INFORMED FAMILY
--- NOTE | 2020-03-23 06:20 | NUR ---
PTS AND SON HERE AT WINDOW OF ROOM SECONDARY TO COVID.
--- NOTE | 2020-03-23 07:30 | NUR ---
0730 NOTIFIED [facility] [phone]
--- NOTE | 2020-03-23 08:02 | NUR ---
JOSE WITH [facility] CALLED TO COMPLETE THE [facility] NOTIFICATION RULED OUT CASE NUMBER OF [id number]
--- NOTE | 2020-03-23 09:10 | NUR ---
BODY PICKED UP BY HOME AT THIS TIME AFTER POSTMORTEM CARE PROVIDED. NO FURTHER ACTIONS.
[2020-03-23 11:10] LABS: HEP B CORE AB TOTAL Positive (Negative)
--- NOTE | 2020-03-25 08:42 | MORECARE ---
CASE MANAGEMENT DISCHARGE SUMMARY PATIENT: PENELOPE IRBY UNIT: [id number] ADM DATE: 03/11/20 AGE: 54 : 65 SEX: M ROOM/BED: D.2316 AUTHOR: LEISADOC PHYSICIAN: REFERRING PHYSICIAN: JEAN MARIE CHRISTENSEN MD DATE OF SERVICE: 03/25/20 Discharge Plan Patient Name: PENELOPE IRBY Facility: [facility]:[place] : 1965 Planned Disposition: Home Anticipated Discharge Date: Discharge Date: 03/23/2020 Expected LOS: Initial Reviewer: [email or web address] Initial Review Date: 03/11/2020 Generated: 03/25/20 9:41 am Comments DCP- Discharge Planning Updated by [email or web address]: Kecia Avitia on 03/22/20 6:[address] LATE ENTRY 03/20/20 Patient Name: PENELOPE IRBY Admission Status: ER Accout number: [id number] Admission Date: 03-11-2020 : 1965 Admission Diagnosis:OTHER SPECIFIED SEPSIS Attending: JEAN MARIE CHRISTENSEN Current LOS: 11 Anticipated DC Date: Planned Disposition: Home Primary Insurance: [employer] OUT OF STATE Discharge Planning Comments: CM met with patient to complete initial dc planning assessment. CM educated patient on the CM role and verbal consent given by patient to complete assessment. Patient lives at home with family. Patient is independent. At discharge patient plans to return home and feels this is a safe discharge. CM discussed availability of home health, rehab services, and medical equipment. Patient will have family to transport home. Patient denied known discharge needs at this time. CM will continue to follow and will assist as needed with dc plans/needs. Activities Therapist: Kecia Avtiia DCPIA - Discharge Planning Initial Assessment Updated by [email or web address]: Kecia Avitia on 03/22/20 7:48 pm * Is the patient Alert and Oriented? No * PCP NO PCP - FOLLOWED BY GRISEL NEPH * [facility] * Preadmission Environment Home with Family * ADLs Independent * List name and contact numbers for known caregivers / representatives who currently or will assist patient after discharge: CHAO IRBY - [phone] ZHANG BRIONES - [phone] * Verbal permission to speak to the caregivers and representatives has been obtained from the patient. N/A * Community resources currently utilized None * Additional services required to return to the preadmission environment? No * Can the patient safely return to the preadmission environment? Yes * Has this patient been hospitalized within the prior 30 days at any hospital? No Last DP export: 03/22/20 6:54 p Patient Name: PENELOPE IRBY Page 76201 at 0842 All edits/amendments must be made on the electronic document DICTATION DATE: 03/25/20840 POTLINE MONITOR: DM 03/25/20840 RPT#: [id number] DC DATE:03/23/20 STATUS: DIS IN [facility] [address] [place] [address] END OF REPORT
[2020-03-25 13:09] LABS: FUNGUS STAIN Final report (())
--- NOTE | 2020-03-26 09:49 | OP ---
PATIENT NAME: PENELOPE IRBY MEDICAL RECORD: [id number] :[birth year] LOCATION:.[facility] D.2316 ADMISSION DATE:03/11/20 SURGEON: ZENAIDA PIERCE MD DATE OF OPERATION: 03/12/2020 PREOPERATIVE DIAGNOSES: 1. COVID positive. 2. Acute renal failure on chronic renal failure. 3. Pneumonia. 4. Hypertension. POSTOPERATIVE DIAGNOSES: 1. COVID positive. 2. Acute renal failure on chronic renal failure. 3. Pneumonia. 4. Hypertension. PROCEDURE: Right IJ 12.5 cm Trialysis catheter placement. SURGEON: Zenaida Pierce MD REPORT OF PROCEDURE: The patient's right neck was prepped and draped in sterile fashion. A 5 cc of 1% lidocaine with epinephrine was infused into the surrounding tissues. A needle was then used to cannulate the right internal jugular vein using ultrasound guidance. A guidewire was then advanced with ease. Over this wire, a dilator was placed followed by the Trialysis catheter. The catheter aspirated nonpulsatile dark blood and flushed easily in all 3 ports. This was sutured in place with 3-0 nylon and dressed appropriately. COMPLICATIONS: None. CONDITION: Stable. ANESTHESIA: Local. BLOOD LOSS: Minimal. Procedure done in the ICU at the bedside. TRANSINT:[id number] Voice Confirmation ID: [id number] DOCUMENT ID: [id number] ZENAIDA PIERCE MD at 0949 CC: [id number] DICTATION DATE: 03/13/20 1324 CASTING AND PASTING SUPERVISOR: 03/13/20 1625 DIS IN 03/23/20 [place] [id number] [place] [id number]
--- NOTE | 2020-03-26 09:49 | OP ---
PATIENT NAME: PENELOPE IRBY MEDICAL RECORD: [id number] :65 LOCATION:.[facility] D.2316 ADMISSION DATE:03/11/20 SURGEON: ZENAIDA PIERCE MD DATE OF OPERATION: 03/21/2020 PREOPERATIVE DIAGNOSES: 1. Gsmjl-ef-yzyxame renal failure. 2. History of renal transplant. 3. COVID positive. 4. Acute respiratory failure on the ventilator. POSTOPERATIVE DIAGNOSES: 1. Uqupf-tn-pybtgkv renal failure. 2. History of renal transplant. 3. COVID positive. 4. Acute respiratory failure on the ventilator. PROCEDURE: Right IJ Trialysis catheter line exchange. SURGEON: Zenaida Pierce MD REPORT OF PROCEDURE: The patient's right neck and indwelling central venous line were prepped and draped in sterile fashion. A wire was placed through the distal port and we were able to remove the indwelling catheter. Over this wire, a new 15 cm Trialysis catheter was inserted. This was sutured down with interrupted 3-0 nylons times 2. The ports flushed easily with normal saline. We then dressed the catheter appropriately. COMPLICATIONS: None. CONDITION: Fair. ANESTHESIA: General endotracheal. BLOOD LOSS: Minimal. Procedure done in the ICU at the bedside. TRANSINT:[id number] Voice Confirmation ID: [id number] DOCUMENT ID: [id number] ZENAIDA PIERCE MD at 0949 CC: [id number] DICTATION DATE: 03/21/201800 CIVIL ENGINEERING ASSISTANT: 03/21/202126 DIS IN 03/23/20 [id number] [place] [address]
== END 2020-03-23 09:10 | DRG 870 ==
LOC: D.ER 10:29 → D.ICU 15:19
PROVIDERS: Emergency Medicine; Family Medicine; Internal Medicine; Internal Medicine Nephrology; Internal Medicine Pulmonary Disease; ADMIT Family Medicine; ATTEND Family Medicine
PROC: 05HM33Z Insertion of Infusion Device into Right Internal Jugular Vein, Percutaneous Approach (ICD-10-PCS; principal; 2020-03-12)
PROC: 5A1955Z Respiratory Ventilation, Greater than 96 Consecutive Hours (ICD-10-PCS; 2020-03-14)
PROC: 0BH18EZ Insertion of Endotracheal Airway into Trachea, Via Natural or Artificial Opening Endoscopic (ICD-10-PCS; 2020-03-16)
PROC: 03HB33Z Insertion of Infusion Device into Right Radial Artery, Percutaneous Approach (ICD-10-PCS; 2020-03-16)
PROC: 0B21XEZ Change Endotracheal Airway in Trachea, External Approach (ICD-10-PCS; 2020-03-21)
PROC: 05PY33Z Removal of Infusion Device from Upper Vein, Percutaneous Approach (ICD-10-PCS; 2020-03-21)
PROC: 05HM33Z Insertion of Infusion Device into Right Internal Jugular Vein, Percutaneous Approach (ICD-10-PCS; 2020-03-21)
DX: A41.89 Other specified sepsis (principal); J96.01 Acute respiratory failure with hypoxia; J18.9 Pneumonia, unspecified organism; R65.21 Severe sepsis with septic shock; N17.0 Acute kidney failure with tubular necrosis; U07.1 COVID-19; N17.9 Acute kidney failure, unspecified; E87.1 Hypo-osmolality and hyponatremia; Z94.0 Kidney transplant status; E87.2 Acidosis; J95.03 Malfunction of tracheostomy stoma; E87.5 Hyperkalemia; I25.9 Chronic ischemic heart disease, unspecified; R79.89 Other specified abnormal findings of blood chemistry; E66.9 Obesity, unspecified; Z68.33 Body mass index [BMI] 33.0-33.9, adult; D64.9 Anemia, unspecified; I12.9 Hypertensive chronic kidney disease with stage 1 through stage 4 chronic kidney disease, or unspecified chronic kidney disease; N18.3 Chronic kidney disease, stage 3 (moderate); N28.9 Disorder of kidney and ureter, unspecified; E78.5 Hyperlipidemia, unspecified; Z92.25 Personal history of immunosuppression therapy; D63.1 Anemia in chronic kidney disease; I46.8 Cardiac arrest due to other underlying condition